=== PATIENT | female | born 1970 | race Caucasian/White ===

== ENCOUNTER 2023-08-08 14:48 | Emergency (ER) | payer OTHER, SELFPAY ==
[2023-08-08 15:04] VITALS: BP 120/61; PULSE 79; RESP 18; TEMP 36.1; O2SAT 100
--- NOTE | 2023-08-08 15:37 | ED.GENADULT ---
HPI - General Adult General Chief complaint: Extremity Injury, Upper Stated complaint: Left Arm/Pain Source: patient Mode of arrival: ambulatory Limitations: no limitations History of Present Illness HPI narrative: Patient presents for evaluation LUE pain. Symptom onset 4-5 days ago. No precipitating injury. She thinks she may have slept on it room. She rates her pain 10/10 severity. She describes it is sharp and constant. She is not taking any medication to assist with her symptoms. She had cubital tunnel surgery in the past. She is right-hand dominant. She denies any paresthesias or loss of range of motion. Related Data Home Medications Medication Instructions Recorded Confirmed ergocalciferol (vitamin D2) 1,250 08/08/23 mcg (50,000 unit) capsule levothyroxine 125 mcg tablet mcg 08/08/23 sumatriptan succinate 50 mg tablet mg PO 08/08/23 Allergies Allergy/AdvReac Type Severity Reaction Status Date / Time codeine Allergy Unknown Verified 08/08/23 15:04 aspirin AdvReac Unknown Other Verified 10/11/19 10:20 Penicillins AdvReac Unknown Nausea and Verified 10/11/19 10:20 Vomiting Review of Systems Review of Systems: CONSTITUTIONAL: Denies fever, chills, or sweats. EYES: Denies visual changes, redness, or discharge. ENT: Denies rhinorrhea, congestion, sore throat, or otalgia. CARDIOVASCULAR: Denies chest pain, palpitations, or edema. RESPIRATORY: Denies cough or dyspnea. GASTROINTESTINAL: Denies abdominal pain, nausea, vomiting, or diarrhea. GENITOURINARY: Denies dysuria or hematuria. SKIN: Denies rash or itching. MUSCULOSKELETAL: Reports pain in left upper extremity. NEUROLOGIC: Denies headache, numbness, dizziness, or weakness. PSYCHIATRIC: Denies anxiety or depression. [facility] Past Medical History Medical History Anemia CHF (congestive heart failure) COPD (chronic obstructive pulmonary disease) Thyroid disorder Surgical History Surgical History History of Family History Family History Mother Family history non-contributory Social History Social History Substance use: never Living arrangements: with family Gender identity (if verbalized by the patient): Female Sexual Orientation (if Verbalized by the Patient): Straight or Heterosexual Spiritual care concerns: No Exam Narrative: GENERAL: Well-appearing, well-nourished, and in no acute distress. HEAD: Normocephalic, atraumatic. EYES: PERRLA and EOMI. ENT: Nares clear, no rhinorrhea or epistaxis. Mucous membranes moist. Oropharynx without tonsillar hypertrophy exudate or other lesions. Bilateral TMs pearly petersen nonbulging NECK: Supple. No adenopathy or masses. No carotid bruits or JVD CHEST: Clear to auscultation. No respiratory distress. No wheezes rales or rhonchi HEART: Regular rate and rhythm. No murmur heard. Normal peripheral pulses. ABDOMEN: Soft, nontender, nondistended, normal active bowel sounds. EXTREMITIES: Full range of motion of left elbow. 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 5/5 strength against resistance with flexion of the left elbow. Able to pronate and supinate the left arm. There is no crepitus, deformity, swelling. SKIN: Warm, dry, no rash. NEURO: No focal deficits. Alert and oriented x3. PSYCH: Normal mood and affect. Course Course Emergency Course: This is a 53-year-old female who presented for evaluation of left upper extremity pain. She has no loss of range of motion, crepitus, deformity. There is not appear to be clinical indication for an x-ray. I did recommend she contact her surgeon to determine whether she needs any follow-up imaging. Will discharge with meloxicam, which she has taken in the past without difficulty. Go to the [facility]
== END 2023-08-08 15:34 | disposition home or self-care (01) ==
PROVIDERS: Emergency Provider Nurse Practitioner; PCP Physician Assistant
DX: M25.522 Pain in left elbow (principal); J44.9 Chronic obstructive pulmonary disease, unspecified; I50.9 Heart failure, unspecified; E07.9 Disorder of thyroid, unspecified
CPT/HCPCS: 99203; G0463